=== PATIENT | male | born 1950 | race Caucasian/White ===

== ENCOUNTER 2017-10-22 16:27 | Inpatient (IN) | payer MEDICARE, OTHER ==
[~2017-10-22] VITALS: Ht 182.9 cm; Wt 127.5 kg
[~2017-10-22 16:27] MED LIST: ACETAMINOPHEN325 MG PO; ASPIR 8181 MG PO; ASPIRIN325 PO; ATORVASTATIN CA40 MG PO; CARDIZEM CD240 MG PO; COZAAR 50 MG TA50 M2 PO; FLOMAX0.4 MG PO; GLUCOTROL5 MG PO; INVOKANA300 MG PO; METFORMIN HCL500 MG PO; PROTONIX40 M1 PO; SORINE 80 MG TA80 MG PO; TRICOR145 MG PO; XARELTO10 MG PO; XARELTO15 MG PO
[2017-10-22 18:15] VITALS: BP 145/102
[2017-10-22 19:20] LABS: ABSOLUTE EOSINOPHILS 0.1 thou/uL (0.0-0.7); ABSOLUTE LYMPHOCYTES 0.8 thou/uL (0.8-5.3); ABSOLUTE MONOCYTES 0.5 thou/uL (0.0-1.2); ABSOLUTE NEUTROPHILS 6.1 thou/uL (1.6-8.1); BASOPHILS 0.6 %; EOSINOPHILS 1.3 %; HEMATOCRIT 29.8 % (42.0-52.0); HEMOGLOBIN 9.8 gm/dL (14.0-18.0); LYMPHOCYTES 10.7 %; MCH 30.1 pg (26.0-34.0); MCHC 32.9 g/dL (28.0-37.0); MCV 91.3 fL (80.0-100.0); MONOCYTES 6.6 %; MPV 10.1 fl. (7.2-11.1); NUCLEATED RBCS 0 /100WBC; PLATELET COUNT* 172 thou/uL (150-400); POLYS 80.8 %; RBC 3.27 mil/uL (4.50-6.00); RDW-CV 16.1 % (10.5-14.5); WBC 7.5 thou/uL (4.0-11.0)
[2017-10-22 19:25] LABS: APTT 48.8 Seconds (25.0-31.3); INR 2.3; PROTIME 22.1 Seconds (9.20-11.50)
[2017-10-22 19:42] LABS: ALBUMIN 3.1 g/dL (3.4-5.0); CALCIUM 8.5 mg/dL (8.5-10.1); CREATININE 2.4 mg/dL (0.6-1.3); MAGNESIUM 2.7 mg/dL (1.8-2.4); TOTAL BILIRUBIN 1.9 mg/dL (<0.1-1.0); TOTAL PROTEIN 6.2 g/dL (6.4-8.2)
[2017-10-22] MEDS ORDERED: GLUCOTROL5 MG PO (19:47)
[2017-10-22] MEDS ORDERED: LOPRESSOR100 M1 PO (19:50)
[2017-10-22] MEDS ORDERED: COUMADIN 2.5MG2.5 M1 PO (19:51)
[2017-10-22] MEDS ORDERED: LASIX 40 MG TAB40 M2 PO (19:52)
[2017-10-22 20:00] VITALS: BP 153/86
[2017-10-22 21:00] VITALS: BP 144/88
[2017-10-22 22:00] VITALS: BP 142/86
[2017-10-22] MEDS ORDERED: COUMADIN 1MG TAB1 M1 PO (23:30)
[2017-10-23] VITALS (12 sets, daily range): BP systolic 129–155; BP diastolic 69–98
[2017-10-23 04:41] LABS: INR 1.4; PROTIME 13.7 Seconds (9.20-11.50)
[2017-10-23 07:26] LABS: CREATININE 2.2 mg/dL (0.6-1.3)
[2017-10-23 07:43] LABS: HEMATOCRIT 28.2 % (42.0-52.0); HEMOGLOBIN 9.4 gm/dL (14.0-18.0); MCH 30.7 pg (26.0-34.0); MCHC 33.4 g/dL (28.0-37.0); MCV 91.7 fL (80.0-100.0); MPV 10.6 fl. (7.2-11.1); RBC 3.07 mil/uL (4.50-6.00); RDW-CV 16.1 % (10.5-14.5)
[2017-10-23 07:54] LABS: CALCIUM 8.4 mg/dL (8.5-10.1); CREATININE 2.2 mg/dL (0.6-1.3); MAGNESIUM 2.3 mg/dL (1.8-2.4); POTASSIUM 4.1 mmol/L (3.5-5.1); TOTAL PROTEIN 5.5 g/dL (6.4-8.2)
--- NOTE | 2017-10-23 12:50 | EKG ---
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 : 1950 Requested By: Vern An Order Number: [id number] Reading MD: Ezio Botello Measurements Intervals [place] Rate: 70 P: CO: QRS: 86 QRSD: 154 T: -14 QT: 424 QTc: 458 Interpretive Statements Atrial fibrillation Right bundle branch block ST depr, consider ischemia, anterolateral lds Compared to ECG 03/19/2014 10:40:37 Right bundle-branch block now present Possible ischemia now present Sinus bradycardia no longer present Electronically Signed On 10-23-2017 12:49:49 CDT by Ezio Botello [email or web address] <ELECTRONICALLY SIGNED> By: Ezio Botello MD, [facility] 10/23/17 1249 07 07 Ezio Botello MD, [facility] /EPI
[2017-10-24] VITALS (7 sets, daily range): BP systolic 118–148; BP diastolic 73–96
[2017-10-24 04:59] LABS: HEMATOCRIT 26.1 % (42.0-52.0); HEMOGLOBIN 8.8 gm/dL (14.0-18.0); MCH 30.9 pg (26.0-34.0); MCHC 33.7 g/dL (28.0-37.0); MCV 91.7 fL (80.0-100.0); MPV 9.3 fl. (7.2-11.1); RBC 2.84 mil/uL (4.50-6.00); RDW-CV 15.7 % (10.5-14.5); WBC 4.6 thou/uL (4.0-11.0)
[2017-10-24 05:08] LABS: INR 1.2; PROTIME 11.9 Seconds (9.20-11.50)
[2017-10-24 05:20] LABS: ALBUMIN 2.6 g/dL (3.4-5.0); CALCIUM 8.4 mg/dL (8.5-10.1); CREATININE 1.9 mg/dL (0.6-1.3); MAGNESIUM 2.1 mg/dL (1.8-2.4); POTASSIUM 3.9 mmol/L (3.5-5.1); TOTAL BILIRUBIN 1.7 mg/dL (<0.1-1.0); TOTAL PROTEIN 5.5 g/dL (6.4-8.2)
--- NOTE | 2017-10-24 11:50 | CON ---
[address] [address] CONSULTATION Name: ALYSSA AMOS JR Room: [address] IN [facility]#: [id number] Admission: 10/22/17 Attend Phys: Vern An MD Discharge: Date of : 50 Report #: [id number] THIS REPORT FOR: //name// CC: Vern Cheney DATE OF SERVICE: 10/23/2017 PRIMARY CARE PHYSICIAN: Dr. Rhett Cheney. SECOND WATCH SERGEANT: Dr. Daniel Walker. CHIEF COMPLAINT: Abdominal pain and bradycardia. HISTORY OF PRESENT ILLNESS: The patient is a 67-year-old man with a history of remote bypass surgery and atrial fibrillation which is persistent. He presented to the Emergency Room at [facility] with abdominal pain. There was concern he had cholecystitis. However, we are asked to see him in transfer because of severe bradycardia, heart rates down in the 30s-40s. He apparently received an injection of Dilaudid, got dizzy and lightheadedness and heart rate decreased to the 20s. He had been on a high dose of beta perez for rate control of his atrial fibrillation. Over the last 24 hours, his beta perez has been held and currently his heart rates are in the 70s. He has been having abdominal discomfort in his lower right quadrant for the past week or so. He denies fevers, chills, nausea, vomiting. He has been taking p.o. He denies constipation. From a cardiovascular standpoint, he has a history of remote CABG, but denies chest pain or pressure actively. He denies weight loss or edema. He does have chronic lower extremity foot and leg swelling. PAST MEDICAL HISTORY: Status post CABG 3 vessels in 1995 at [facility], persistent atrial fibrillation, hyperlipidemia, morbid obesity and chronic kidney disease, type 2 diabetes mellitus. Warfarin anticoagulation. HOME MEDICATIONS: Include atorvastatin 80 mg daily, fenofibrate 145 mg daily, Lasix 40 mg daily, glipizide, metformin, metoprolol 100 mg, Protonix, tamsulosin, warfarin 2.5 mg daily. SOCIAL HISTORY: Nonsmoker. REVIEW OF SYSTEMS: [place] [address] CONSULTATION Name: ALYSSA AMOS JR Room: [address]#: [id number] Admission: 10/22/17 Attend Phys: Vern An MD Discharge: Date of : 50 Report #: [id number] CARDIOVASCULAR: No chest pain. Positive dyspnea on exertion. Positive edema. No palpitations. GENERAL: No weight loss or fevers. RESPIRATORY: No cough or sputum production. ENDOCRINE: Positive diabetes. No thyroid disease. GASTROINTESTINAL: No bleeding, hematemesis or melena. GENITOURINARY: No dysuria or hematuria. HEMATOLOGIC: No anemia or bleeding disorders. ALLERGIES: No seasonal, medical, aspirin or contrast dye. PSYCHIATRIC: No depression or anxiety. MUSCULOSKELETAL: No arthritis, connective tissue disease. SKIN: No rashes. EYES: He does use glasses. EARS, NOSE, THROAT AND MOUTH: No decreased hearing. Positive dentures. PHYSICAL EXAMINATION: VITAL SIGNS: Blood pressure is 120/70, atrial fibrillation in the 70s. GENERAL: Pleasant elderly male. He is alert, oriented, no apparent distress. HEENT: Eyes are intact. No facial asymmetry. NECK: Supple. No jugular venous distention. CARDIOVASCULAR: Irregular. I cannot hear a rub or gallop. LUNGS: Clear to auscultation. ABDOMEN: Soft, nontender. LABORATORY DATA: From [facility]: He had a bradycardic episode with heart rate in the 30s, in atrial fibrillation ,with a baseline wider QRS complex. Hemoglobin is 9.0. Glucose 127. Sodium 136, potassium 3.7, chloride 102, BUN is 40, creatinine is 2.7. INR was 8.1. Hemoglobin is 9.2, white blood cell count 7.8, platelet count 164,000. IMPRESSION: 1. Bradycardia, currently after holding his beta blockers and with IV fluids, his heart rate is stable in the 70s in atrial fibrillation, his baseline rhythm. We will continue to monitor this closely in the ICU. This might have been a combination of underlying medication toxicity with his beta perez as well as decreased clearance from his kidney disease and a vasovagal event. 2. Atrial fibrillation persisted. As noted above. We will continue telemetry monitoring and holding his AV obed acting agents. 3. Preoperative cardiovascular examination. I do not have records from his last stress test, which was a nuclear stress test at [facility], but clinically the patient has not been having any angina type symptoms and presents without heart failure. He was estimated to be a moderate cardiovascular risk for event, and I do not see any contraindication to surgery. 4. Coronary artery disease, status post coronary artery bypass graft, clinically he remains asymptomatic for angina, but does have continued risk given the age of his bypass grafts. We will research when his last [facility] [address] [address] CONSULTATION Name: ALYSSA AMOS JR Room: [address] IN .R.#: [id number] Admission: 10/22/17 Attend Phys: Vern An MD Discharge: Date of : 50 Report #: [id number] echocardiogram was. 5. Coagulopathy, currently his INR is 1.4. I think they gave him FFP in [place]. <ELECTRONICALLY SIGNED> By: Ezio Botello MD, FACC 10/24/17 1150 1059 1404Ezio Botello MD, FACC /nt
[2017-10-25 04:01] VITALS: BP 140/84
[2017-10-25 04:49] LABS: ABSOLUTE EOSINOPHILS 0.1 thou/uL (0.0-0.7); ABSOLUTE LYMPHOCYTES 0.8 thou/uL (0.8-5.3); ABSOLUTE MONOCYTES 0.5 thou/uL (0.0-1.2); ABSOLUTE NEUTROPHILS 2.6 thou/uL (1.6-8.1); BASOPHILS 0.7 %; HEMATOCRIT 25.8 % (42.0-52.0); HEMOGLOBIN 8.7 gm/dL (14.0-18.0); LYMPHOCYTES 19.4 %; MCH 30.8 pg (26.0-34.0); MCHC 33.7 g/dL (28.0-37.0); MCV 91.4 fL (80.0-100.0); MONOCYTES 11.6 %; MPV 8.9 fl. (7.2-11.1); NUCLEATED RBCS 0 /100WBC; PLATELET COUNT* 164 thou/uL (150-400); POLYS 65.3 %; RBC 2.82 mil/uL (4.50-6.00); RDW-CV 15.9 % (10.5-14.5); WBC 3.9 thou/uL (4.0-11.0)
[2017-10-25 05:35] LABS: ALBUMIN 2.7 g/dL (3.4-5.0); CREATININE 1.8 mg/dL (0.6-1.3); POTASSIUM 3.8 mmol/L (3.5-5.1); TOTAL BILIRUBIN 1.5 mg/dL (<0.1-1.0); TOTAL PROTEIN 5.7 g/dL (6.4-8.2)
[2017-10-25 08:00] VITALS: BP 140/87
--- NOTE | 2017-10-25 10:30 | EKG ---
[place] [address] ELECTROCARDIOGRAM REPORT Name: ALYSSA AMOS JR Room: [address] ADM IN 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1950 Requested By: Vern An Order Number: [id number] Roberto Carlos MD: Daniel Walker Measurements Intervals [place] Rate: 103 P: [place]: QRS: 92 QRSD: 143 T: -27 QT: 378 QTc: 495 Interpretive Statements Atrial fibrillation RBBB and LPFB ST depr, consider ischemia, anterolateral lds Compared to ECG 10/22/2017 20:08:58 Possible ischemia still present Electronically Signed On 10-25-2017 10:30:03 CDT by Daniel Walker [email or web address] <ELECTRONICALLY SIGNED> By: Daniel Walker MD, [facility] 10/25/17 1030 1014 1014 Daniel Walker MD, [facility] /EPI
[2017-10-25 11:30] VITALS: BP 145/59
[2017-10-25 16:00] VITALS: BP 136/95
[2017-10-25 19:48] VITALS: BP 123/78
[2017-10-26] VITALS (8 sets, daily range): BP systolic 128–150; BP diastolic 73–98
[2017-10-26 05:33] LABS: HEMATOCRIT 26.6 % (42.0-52.0); HEMOGLOBIN 8.6 gm/dL (14.0-18.0); MCH 30.5 pg (26.0-34.0); MCHC 32.5 g/dL (28.0-37.0); MCV 93.7 fL (80.0-100.0); MPV 9.2 fl. (7.2-11.1); RBC 2.84 mil/uL (4.50-6.00); RDW-CV 16.2 % (10.5-14.5); WBC 3.5 thou/uL (4.0-11.0)
[2017-10-26 06:06] LABS: ALBUMIN 2.6 g/dL (3.4-5.0); CALCIUM 8.4 mg/dL (8.5-10.1); CREATININE 1.9 mg/dL (0.6-1.3); MAGNESIUM 1.6 mg/dL (1.8-2.4); POTASSIUM 4.1 mmol/L (3.5-5.1); TOTAL BILIRUBIN 1.3 mg/dL (<0.1-1.0); TOTAL PROTEIN 5.5 g/dL (6.4-8.2)
[2017-10-27 00:02] VITALS: BP 143/94
[2017-10-27 04:00] VITALS: BP 135/77
[2017-10-27 04:48] LABS: HEMATOCRIT 26.4 % (42.0-52.0); HEMOGLOBIN 8.6 gm/dL (14.0-18.0); MCH 30.7 pg (26.0-34.0); MCHC 32.8 g/dL (28.0-37.0); MCV 93.7 fL (80.0-100.0); MPV 8.8 fl. (7.2-11.1); RBC 2.81 mil/uL (4.50-6.00); RDW-CV 16.4 % (10.5-14.5); WBC 4.7 thou/uL (4.0-11.0)
[2017-10-27 04:52] LABS: ALBUMIN 2.6 g/dL (3.4-5.0); CALCIUM 8.4 mg/dL (8.5-10.1); CREATININE 1.8 mg/dL (0.6-1.3); MAGNESIUM 1.5 mg/dL (1.8-2.4); TOTAL BILIRUBIN 2.2 mg/dL (<0.1-1.0); TOTAL PROTEIN 5.5 g/dL (6.4-8.2)
[2017-10-27 09:30] VITALS: BP 127/83
[2017-10-27 12:00] VITALS: BP 135/78
[2017-10-27 16:00] VITALS: BP 125/70
[2017-10-27 19:50] VITALS: BP 130/90
[2017-10-28] VITALS: BP 127/87
[2017-10-28 04:00] VITALS: BP 146/82
[2017-10-28 04:54] LABS: HEMATOCRIT 26.3 % (42.0-52.0); HEMOGLOBIN 8.7 gm/dL (14.0-18.0); MCH 30.9 pg (26.0-34.0); MCHC 33.2 g/dL (28.0-37.0); MCV 93.1 fL (80.0-100.0); MPV 8.6 fl. (7.2-11.1); RBC 2.83 mil/uL (4.50-6.00); RDW-CV 17.1 % (10.5-14.5); WBC 4.4 thou/uL (4.0-11.0)
[2017-10-28 04:59] LABS: INR 1.5; PROTIME 14.8 Seconds (9.20-11.50)
[2017-10-28 05:03] LABS: ALBUMIN 2.5 g/dL (3.4-5.0); CALCIUM 8.3 mg/dL (8.5-10.1); CREATININE 1.8 mg/dL (0.6-1.3); POTASSIUM 4.7 mmol/L (3.5-5.1); TOTAL BILIRUBIN 2.7 mg/dL (<0.1-1.0); TOTAL PROTEIN 5.6 g/dL (6.4-8.2)
[2017-10-28 08:00] VITALS: BP 134/82
[2017-10-28 09:36] VITALS: BP 130/90
[2017-10-28 11:42] VITALS: BP 130/90
[2017-10-28 12:00] VITALS: BP 130/90; BP 137/89
--- NOTE | 2017-11-06 13:45 | OP ---
[address] [address] OPERATIVE REPORT Name: ALYSSA AMOS JR Room: [address] IN [facility]#: [id number] Admission: 10/22/17 Attend Phys: Vern An MD Discharge: 10/28/17 Date of : 50 Report #: [id number] THIS REPORT FOR: //name// CC: Vern Cheney DICTATED BY: Martin Spivey DO DATE OF SERVICE: 10/26/2017 PREPROCEDURE DIAGNOSES: Chronic cholecystitis, cholelithiasis and acute pancreatitis. POSTOPERATIVE DIAGNOSES: Chronic cholecystitis, cholelithiasis and acute pancreatitis, gangrenous cholecystitis. SURGEON: Felicity Rashid DO EDGE BANDING OFF BEARER: Juancarlos Spivey, PGY-3. OPERATION: Laparoscopic cholecystectomy with IOC and intraoperative interpretation by surgeon, 15-Scottish DARREL drain placement and Surgicel placement within the gallbladder fossa. ANESTHESIA TYPE: General and local. ESTIMATED BLOOD LOSS: 30 mL. SPECIMEN REMOVED: Gallbladder. COMPLICATIONS: None. Findings were delayed and contrast slow with the IOC but no evidence of obvious obstruction. HISTORY OF PRESENT ILLNESS: The patient is a pleasant 67-year-old male who was transferred from [facility] on 10/22/2017 for abdominal pain, epigastric discomfort and right upper quadrant radiation. He was found to have acute pancreatitis along with gallbladder dysfunction with a contracted gallbladder ultrasound. The patient was admitted to [facility] for treatment and likely cholecystectomy, but was complicated by some bradycardia at that time. He also had some encephalopathic events, which are exacerbated by Dilaudid. The patient was unable to receive cardiac care at the hospital, so he was transferred here for further treatment. During his hospital stay here, the patient had abdominal ultrasound as well as MRCP done. The gallbladder was seen on ultrasound and was packed with stones. [place] [address] OPERATIVE REPORT Name: ALYSSA AMOS JR Room: [address] IN [facility]#: [id number] Admission: 10/22/17 Attend Phys: Vern An MD Discharge: 10/28/17 Date of : 50 Report #: [id number] thickened with some intramural edema suspicious for cholecystitis. The MRCP that was performed showed no evidence of biliary occlusion. There was contracted gallbladder and thickened wall again seen with numerous intraluminal gallstones. His labs which were initially elevated were trending down, more specifically his total bilirubin. The patient was cleared by Cardiology and we had decided to proceed with laparoscopic cholecystectomy. A complete description of procedure was reviewed in detail with the patient. All risks, benefits, complications discussed and include but are not limited to infection, bleeding, hernia at incision sites, injury to bowel or colon, injury to stomach, injury to intrahepatic and extrahepatic ducts along with common bile duct, other common complications associated with the procedure and anesthesia risks. The patient voiced understanding and wished to proceed. DESCRIPTION OF PROCEDURE: After the appropriate consents were obtained, the patient was taken to the operating room and laid in supine position. He had SCDs placed on bilateral lower extremities and all lines were placed by Anesthesia. The patient's right arm was tucked to the side and his left arm was placed out. A foot plate was placed at the end of the bed and the patient had a safety strap placed across his lap. He was given perioperative antibiotics consisting of 2 grams of Ancef and anesthesia sedated. The patient was subsequently intubated without difficulty. His abdomen was prepped and draped in standard sterile fashion. A timeout was performed to correctly identify the patient and procedure. We started with some 0.5% Marcaine at the supraumbilical site where we would make a future incision. Using 11 blade scalpel, we made our skin incision and dissected down through the subcutaneous tissue using blunt dissection with S retractors. Once we encountered the anterior abdominal wall, fascia was grasped and elevated between 2 Talon clamps. The fascia was then incised using electrocautery. A 0 Vicryl suture was placed on either side of the fascia to act as stay sutures for Ji trocar. We entered the abdominal cavity using hemostat bluntly and a finger was used to sweep the incision to ensure there were no adhesions present and none were. We introduced the Ji trocar along with the camera and secured it using our previously placed 0 Vicryl sutures. On initial introduction of the camera, it appeared the patient's liver was high riding in his right upper quadrant and there was extensive amount of omentum that was present. We started with our subxiphoid port, which was placed under direct visualization. We then placed our 2 right lateral ports also under direct visualization. We swept the omentum down and placed the patient in a head up and rotated left position and this allowed us to obtain a better view of the inferior edge of the liver and the patient had an extensive amount of adhesions to the gallbladder from the omentum. We had difficulty keeping the omentum retracted, so we did place another 11 mm trocar in his right abdomen in order to place a fan retractor. This allowed us to completely visualize the gallbladder. The patient had multiple large stones within the gallbladder and it appeared that partially one of the stones was attempting to erode through the distal aspect of the gallbladder. There was no obvious perforation, but there was extensive amount of inflammation and adhesions. Lysis of adhesions along [facility] [address] [place] [address] OPERATIVE REPORT Name: ALYSSA AMOS JR Room: [address] IN [facility]#: [id number] Admission: 10/22/17 Attend Phys: Vern An MD Discharge: 10/28/17 Date of : 50 Report #: [id number] the gallbladder took approximately 30 minutes to take down. Once all the adhesions were taken down, we were able to grasp the gallbladder along the mid portion of it and retracted cephalad to give us a better visualization of the Aleta's pouch. We dissected along Aleta's pouch and opened the peritoneum overlying it and this allowed us to use blunt dissection to dissect out our cystic artery and cystic duct. Cystic artery was coursing posteriorly to our duct. It was at this time that we were able to obtain our critical view. There were 2 structures only, 2 structures coursing directly into the gallbladder. We were able to visualize the inferior edge of the liver along with the cystic duct and cystic artery. Then, using the Reynoso clamp, we clamped across the Aleta's pouch of the gallbladder and inserted our catheter into the cystic duct. We initially aspirated bile and then we flushed with normal saline. It flushed easily and we were able to bring in the C-arm for the intraoperative cholangiogram portion of our surgery. After bringing in the C-arm, we exchanged normal saline syringe for 50/50 contrast. We first started with injecting some contrast and were able to visualize the common bile duct very easily along with the cystic duct. The signal on the x-ray was rather weak, so we exchanged the half contrast for full strength contrast. After we obtained this, we then again used fluoro to further visualize the structures. There was some slow filling of the common bile duct at distal aspect, but there was contrast that was seen moving into the duodenum. Then, looking more cephalad, we were able to visualize the intrahepatic ducts and there did not appear to be any blockage at that time. Pictures of those were saved and we removed our Reynoso clamp. We then again identified our cystic duct and cystic artery and placed clips across both. We placed 3 clips proximally on the cystic duct, 1 clip distally. We placed 2 clips proximally on cystic artery and 1 distally. Using laparoscopic scissors, we were able to incise the duct and the artery. The remainder of the gallbladder was excised from the liver bed using electrocautery. The patient's gallbladder was very thin walled and was severely inflamed. Dissection was difficult, but we were able to remove the gallbladder completely. There were a few stones that had spilled during the dissection, but these were found and obtained. The gallbladder along with the stones were placed within an EndoCatch pouch. There was some minimal bleeding from the liver bed, which was adequately controlled using electrocautery. We did elect to place a sheet of Surgicel along the gallbladder fossa to further enhance our hemostasis of this area. We also elected to place 15-setswana DARREL drain. We placed this drain through the subxiphoid port and pulled it out through our right lateral abdominal port. It was sutured into place using a 2-0 nylon suture. We placed our drain at the inferior aspect of the liver and along Morison's pouch. Once we were pleased with the drain placement and all the fluid was running clear with our suction lithograph press operator tinware, we were able to once again visualize our clips, which appeared to be intact. There was no bleeding or oozing from the cystic duct stump or the cystic artery stump. We suctioned away any remaining fluid and decided to remove our trocars under direct visualization. There was no bleeding from any of the trocar sites and we allowed the patient's abdomen to desufflate. Once it was completely desufflated, we removed our Ji trocar as well as our camera [facility] [address] OPERATIVE REPORT Name: ALYSSA AMOS JR Room: [address] IN ..#: [id number] Admission: 10/22/17 Attend Phys: Vern An MD Discharge: 10/28/17 Date of : 50 Report #: [id number] and took the gallbladder out of the abdominal cavity within the EndoCatch pouch through the supraumbilical incision. We then closed our fascial incision using 0 Vicryl suture in a yzsuee-ta-dsjzu fashion. This allowed us to achieve good approximation of the fascia and prior to tying down the suture, we were able to use a finger tensor. There were no ebenezer-incisional structures that had snuck up into our incision and none were present. The suture was then tied down and the fascia was anesthetized using 0.5% Marcaine. We used a 3-0 Vicryl in an inverted interrupted fashion to close the subcutaneous tissue of this incision. We also used a 3-0 Vicryl on the 11 mm right lateral abdominal port and the subxiphoid port. Using 4-0 Monocryl in inverted interrupted fashion, we were able to close the skin incisions. Each of the incision sites were then further anesthetized using 0.5% Marcaine. The patient's abdomen was cleaned and dried adequately and Mastisol, Steri-Strips, gauze and a sterile Tegaderm Op-Site were applied over each incision site. The drain had drain sponge placed along with a Tegaderm. The patient tolerated the procedure well. He was allowed to awaken and was subsequently extubated in the operating room. He was then transported to his cart very carefully and will be transported back to the PACU where he will be allowed to recover. Once he recovers, he will be transferred to his room for further observation. Counts were correct x 2 at the initial procedure and Dr. Rashid was present and scrubbed for the entire procedure. <ELECTRONICALLY SIGNED> By: Felicity Rashid DO 11/06/17 1345 1527 1624Cprabha Rashid DO /nt
--- NOTE | 2017-11-26 09:09 | PATH ---
[address] [address] PATHOLOGY RPT PROCEDURE Name: VICTORINO AMOS JR Room: [address] IN ..#: [id number] Admission: 10/22/17 Date of : 50 Discharge: 10/28/17 Report #: [id number] Path Case #: [id number] [facility] Accession Number: [id number] . 01 Material submitted: . GALLBLADDER AND CONTENTS . 01 Clinical history: . Cholecystitis with cholelithiasis and pancreatitis . 02 Diagnosis: Gallbladder and contents: - Chronic and acute erosive cholecystitis with mural fibrosis and cholelithiasis. (ROSA:; 10/29/17) QRQ/10/29/2017 . 02 Electronically signed: . Noe Gordon MD, Pathologist NPI- [id number] . 01 Gross description: . The specimen is received in formalin, labeled "Victorino Amos Jr, gallbladder" and consists of a previously opened, kidd-brown and ragged gallbladder measuring 4.6 x 1.6 x 1.3 cm. The mucosa is green and velvety to pérez-kidd, hemorrhagic, and shiny/smooth with an average wall thickness of 0.2 cm. There are multiple black and gravel-like calculi measuring up to 0.6 cm which grossly appear to occlude the neck aspect/cystic duct. There is a single smooth and black calculus in the container which measures 1.9 x 1.6 cm. No polyps or mass lesions are identified. Clinical Research Director sections are submitted in A1. (SDY; 10/27/2017) SYU/SYU . 02 Pathologist provided ICD-10: K80.12 . 02 CPT . 292149 Performed at: [address], [place] [id number] MD Eloy Faulkner MD Phone: [phone] Performed at: 02 [facility] [address], [place], [place] [id number] MD Noe Gordon MD Phone: [phone]
== END 2017-10-28 14:02 | disposition home or self-care (01) | DRG 417 ==
LOC: M.ICU 16:27 → M.2W 18:38 → M.ICU 10-23 07:26 → M.2W 10-23 16:49
PROVIDERS: Internal Medicine; Internal Medicine Cardiovascular Disease; Surgery; ADMIT Internal Medicine
PROC: 0FT44ZZ Resection of Gallbladder, Percutaneous Endoscopic Approach (ICD-10-PCS; principal; 2017-10-26)
PROC: BF131ZZ Fluoroscopy of Gallbladder and Bile Ducts using Low Osmolar Contrast (ICD-10-PCS; principal; 2017-10-26)
DX: K80.12 Calculus of gallbladder with acute and chronic cholecystitis without obstruction (principal); K85.10 Biliary acute pancreatitis without necrosis or infection; R65.11 Systemic inflammatory response syndrome (SIRS) of non-infectious origin with acute organ dysfunction; D68.9 Coagulation defect, unspecified; N17.9 Acute kidney failure, unspecified; E44.1 Mild protein-calorie malnutrition; I13.0 Hypertensive heart and chronic kidney disease with heart failure and stage 1 through stage 4 chronic kidney disease, or unspecified chronic kidney disease; N18.4 Chronic kidney disease, stage 4 (severe); I73.9 Peripheral vascular disease, unspecified; E66.01 Morbid (severe) obesity due to excess calories; K21.9 Gastro-esophageal reflux disease without esophagitis; D64.9 Anemia, unspecified; E78.5 Hyperlipidemia, unspecified; I25.10 Atherosclerotic heart disease of native coronary artery without angina pectoris; I48.2 Chronic atrial fibrillation; N40.0 Benign prostatic hyperplasia without lower urinary tract symptoms; E11.22 Type 2 diabetes mellitus with diabetic chronic kidney disease; R00.1 Bradycardia, unspecified; Z68.38 Body mass index [BMI] 38.0-38.9, adult; Z88.6 Allergy status to analgesic agent; Z79.4 Long term (current) use of insulin; Z79.2 Long term (current) use of antibiotics; Z79.899 Other long term (current) drug therapy; Z95.1 Presence of aortocoronary bypass graft; Z79.01 Long term (current) use of anticoagulants; Z83.3 Family history of diabetes mellitus; Z80.9 Family history of malignant neoplasm, unspecified; Z82.49 Family history of ischemic heart disease and other diseases of the circulatory system